=== PATIENT | male | born 1995 | race Two or more races ===

== ENCOUNTER 2018-06-20 21:05 | Emergency (ER) | payer SELFPAY ==
[2018-06-20 21:10] VITALS: BP 135/87
--- NOTE | 2018-06-20 21:12 | EDPHY ---
H & P Stated Complaint: SORE THROAT, FEVER SINCE TODAY Time Seen by Provider: 06/20/18 21:11 - Personal History Current Tetanus/Diphtheria Vaccine: Yes Current Tetanus Diphtheria and Acellular Pertussis (TDAP): Yes - Medical/Surgical History Hx Asthma: No Hx Chronic Respiratory Disease: No Hx Diabetes: No Hx Cardiac Disease: No Hx Renal Disease: No Hx Cirrhosis: No Hx Alcoholism: No Hx HIV/AIDS: No Hx Splenectomy or Spleen Trauma: No Other PMH: CYST ON SPINE REMOVED, GLANDS REMOVED - Social History Smoking Status: Current some day smoker Constitutional: Initial Vital Signs Temperature (C) 36.5 C 06/20/18 21:08 Heart Rate 79 06/20/18 21:08 Respiratory Rate 16 06/20/18 21:08 Blood Pressure 135/87 H 06/20/18 21:08 O2 Sat (%) 96 06/20/18 21:08 O2 Delivery Mode Room Air Allergies/Adverse Reactions: No Known Allergies Allergy (Unverified 06/20/18 21:08) Home Medications: Medication Instructions Recorded Cephalexin [Keflex (RX)] 500 mg PO TID #30 cap 06/20/18 Medical Decision Making ED Course/Re-evaluation: CHIEF COMPLAINT: Sore throat HISTORY OF PRESENT ILLNESS: The patient is a 22 y/o male complaining of a worsening sore throat onset yesterday morning. As his symptoms have not improved he decided to present to the emergency department. No fever, headache, body aches, lightheadedness, chest pain, heart palpitations, shortness of breath, cough, abdominal pain, urinary or bowel complaints, numbness, paresthesias. REVIEW OF SYSTEMS: A 10 point review of systems was performed and is negative with the exception of the elements mentioned in the history of present illness. PHYSICAL EXAM: HR, BP, O2 Sat, RR. Temp noted General Appearance: Alert, well hydrated, appropriate, and non-toxic appearing. Head: Atraumatic without scalp tenderness or obvious injury Eyes: Pupils equal, round, reactive to light and accommodation, EOMI, no trauma , no injection. Ears: Clear bilaterally, no perforation, normal landmarks Nose: Atraumatic, no rhinorrhea, clear. Throat: Oropharyngeal erythema. Bilateral tonsillar exudates without abscess. No lesions, mucus membranes moist. Neck: Supple, 2+ carotid upstroke, nontender, no lymphadenopathy. Respiratory: No retractions, no distress, no wheezes, and no accessory muscle use. Lungs are clear to auscultation bilaterally. Cardiovascular: Regular rate and rhythm, no murmurs, rubs, or gallops. Bilateral carotid, radial, dorsalis pedis, and posterior tibial pulses intact. Good capillary refill all extremities. Gastrointestinal: Abdomen is soft, nontender, non-distended, no masses, no rebound, no guarding, no peritoneal signs. Musculoskeletal: Normal active ROM of all extremities, atraumatic. Neurological: Alert, appropriate, and interactive. The patient has normal DTRs and non-focal cranial nerves, motor, sensory, and cerebellar exam. Skin: No rashes, good turgor, no nodules on palpation. 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 DIFFERENTIAL DIAGNOSIS: The differential diagnosis for the patient's sore throat included but was not limited to strep throat, pharyngitis, tonsillitis, tonsillar abscess, viral syndrome, meningitis, and sepsis. MEDICAL DECISION MAKING: The patient is a 22 y/o male presenting with a worsening sore throat onset yesterday morning. On exam he has oropharyngeal erythema and bilateral tonsillar exudates consistent with strep throat. 40mg PO Prednisone and first dose of Keflex administered. I have prescribed him Keflex. Return precautions provided; patient is comfortable with this plan. Departure - Departure Disposition: Home, Routine, Self-Care Clinical Impression: Pharyngitis Qualifiers: Pharyngitis/tonsillitis etiology: other specified organisms Qualified Code(s): J02.8 - Acute pharyngitis due to other specified organisms Condition: Good Instructions: Pharyngitis (ED), Strep Throat (ED) Additional Instructions: 1. Take Keflex as prescribed. 2. Use ibuprofen and Tylenol as needed for fever and body aches. 3. Follow up with your primary care physician within 72 hours for reevaluation. 4. Drink plenty of fluids. 5. Return to the emergency department immediately for high fever, severe headache or neck pain, difficulty breathing, abdominal pain, rash or other worsening of condition. Referrals: [facility],. [Clinic] - As per Instructions Prescriptions: Cephalexin [Keflex (RX)] 500 mg PO TID #30 cap Report Scribed for: Gerber Maldonado Report Scribed by: Cornelia Hernandez Date of Report: 06/20/18 Time of Report: 21:12
[2018-06-20] MEDS ORDERED: predniSONE 20 MG TAB PO ONE (21:15)
[2018-06-20] MEDS ORDERED: CEPHALEXIN 500 MG CAP PO ONE (21:15)
== END 2018-06-20 21:20 | disposition home or self-care (01) ==
DX: J02.8 Acute pharyngitis due to other specified organisms (principal)
CPT/HCPCS: J7512